=== PATIENT | male | born 1955 | race Caucasian/White ===

== ENCOUNTER → 2019-04-22 10:53 | Outpatient (CLI) | payer MEDICAID, SELFPAY ==
--- NOTE | 2019-04-22 10:59 | US_ITS ---
US Arterial Lower Ext Rest HISTORY: Weak pulses bilateral. . Ulcer left foot.Diabetes. CAD Bilateral claudication with rest pain bilaterally. Skin color changes both the legs. Smoker. Hyperlipidemia. Diabetic hypertension PVD TECHNIQUE: Segmental pressures obtained of both right and left leg. These are compared to brachial blood pressure to yield index at each level sampled including summary DELONTE. The data sheets from the procedure are available in PACS FINDINGS Rest study only performed today No prior studies available for comparison. Blood pressures reported are in millimeters mercury. RIGHT DELONTE = 1.0 RIGHT TBI = 0.9 Brachial BP: No BP on right due to PICC line right arm left BP utilized Thigh BP: BP 1:30 with index 1.05 Calf BP: BP 119, index 0.96 Ankle PT: BP 127, index 1.02 Ankle DP : BP 113, index 0.91 Digit =BP 113, index 0.91 ======== LEFT LEG DELONTE = 0.6 LEFT TBI = 0.6 Pattern suggesting moderate flow-limiting inflow stenosis. Brachial BPD: 124 Thigh BP: BP 84, index 0.68 Calf BP: BP 70 index 0.56 Ankle PT:BP 77, index 0.62 Ankle DP: BP 76, index 0.61 Digit = BP 69, index 0.56 Pulses and waveforms: Diminished bilaterally on left more so than right ...... IMPRESSION:...... Left DELONTE = 0.6 Left TBI = 0.6 .Overall segmental BP pattern at left leg suggesting primarily inflow stenosis left leg. Moderate pronounced Pulses and waveforms: Diminished bilaterally on left more so than right Right DELONTE = 1.0 Right TBI = 0.9 No significant flow-limiting stenosis on right .
== END ==
PROVIDERS: PCP Surgery; Visit Provider Internal Medicine Adolescent Medicine
DX: I73.9 Peripheral vascular disease, unspecified (principal)
CPT/HCPCS: 93923